=== PATIENT | female | born 1930 | race Caucasian/White ===

== ENCOUNTER 2018-04-11 18:34 | Inpatient (IN) | payer MEDICARE, BC ==
[~2018-04-11] VITALS: Ht 157.5 cm; Wt 84.1 kg
[~2018-04-11 18:34] MED LIST: HYDR-3965 PO; NOR5T PO; NORepinephrine bitartrate 8 MG in NS 250 ML BAG (32 mcg/ml) IV ONE; amiodarone 50MG/ML inj IV ONE; atropine 1 MG/1 ML vial ONE; epiNEPHrine 0.1mg/ml 10ml syringe ONE; magnesium sulf 1 GM/2 ML ONE; sod chloride 0.9% 10ml flush syringe IV ONE; sodium bicarbonate (8.4%) 1 mEq/ml syringe ONE
[2018-04-11 19:31] LABS: ABG BASE EXCESS -21.1 mmol/L (-2.0-3.0); ABG HCO3 10.2 mmol/L (22.0-26.0); ABG OXYGEN SATURATION 90.4 % (95-98); ABG PH (T) 6.986 (7.350-7.450); ALLEN'S TEST Positive; FCOHb 0.4 % (0.5-1.5); FMetHb 0.1 % (0.3-1.12); FO2Hb 89.9 % (94-100); MINUTE VOLUME 8 L/min; PATIENT TEMPERATURE 36.2; PEEP 5 cm H2O; RESPIRATORY RATE 12 b/min; RESPIRATORY RATE (OBSERVED) 19 b/min; TIDAL VOLUME 400 mL; TOTAL HEMOGLOBIN 12.7 G/dl (12.0-16.0)
[2018-04-11] MEDS ORDERED: propofol 1000mg/100ml bottle 100 ML IV ONE (19:31)
[2018-04-11 19:33] LABS: BASOPHILS % (AUTO) 0.3 % (0-1); EOSINOPHILS # (AUTO) 0.1 X10'3 (0-0.9); EOSINOPHILS % (AUTO) 0.5 % (0-6); HEMATOCRIT 35.2 % (35.0-45.0); HEMOGLOBIN 11.6 g/dl (12.0-16.0); LYMPHOCYTES # (AUTO) 5.5 X10'3 (1.1-4.8); LYMPHOCYTES % (AUTO) 38.6 % (21-51); MEAN CORPUSCULAR HEMOGLOBIN 29.6 PG (27.0-31.0); MEAN CORPUSCULAR VOLUME 89.8 FL (78-98); MEAN PLATELET VOLUME 9.7 FL (7.4-10.4); MONOCYTES # (AUTO) 0.5 X10'3 (0-0.9); MONOCYTES % (AUTO) 3.6 % (2-12); NEUTROPHILS # (AUTO) 8.2 X10'3 (1.8-7.7); PLATELET COUNT 94 X10'3 (140-440); RED BLOOD COUNT 3.92 X10'6 (4.20-5.60); WHITE BLOOD COUNT 14.3 X10'3 (4.5-11.0)
[2018-04-11] MEDS ORDERED: sodium bicarbonate (8.4%) 1 mEq/ml syringe IV STA (19:33)
[2018-04-11] MEDS ORDERED: propofol 1000mg/100ml bottle 100 ML IV PRN ×2 (19:37→19:53)
[2018-04-11 19:55] LABS: ALANINE AMINOTRANSFERASE 675 U/L (12-78); ALBUMIN 1.4 G/DL (3.4-5.0); ALBUMIN/GLOBULIN RATIO 0.6 (1.1-1.5); ALKALINE PHOSPHATASE 103 IU/L (46-116); ANION GAP 18 (8-16); BILIRUBIN,TOTAL 1.1 MG/DL (0.1-1.0); BLOOD UREA NITROGEN 28 MG/DL (7-18); BUN/CREATININE RATIO 14.3 (6.6-38.0); CALCIUM 6.9 MG/DL (8.5-10.1); CHLORIDE 107 MMOL/L (99-107); CREATININE 1.96 MG/DL (0.40-0.90); GLUCOSE 317 MG/DL (70-104); SODIUM 141 MMOL/L (135-145); TOTAL CARBON DIOXIDE 15.7 MMOL/L (24-32); TOTAL PROTEIN 3.8 G/DL (6.4-8.2); eGFR 24 ML/MIN
[2018-04-11] MEDS: K, MAG and/or Phos replacement - Verify level? MC SCH (19:55)
[2018-04-11] MEDS ORDERED: potassium Cl 20 mEq SR tablet PO PRN ×2 (19:55)
[2018-04-11] MEDS ORDERED: ondansetron/PF 4mg/2ml inj IV PRN ×2 (19:55→20:10)
[2018-04-11] MEDS ORDERED: potassium Cl 40MEQ/250ML bag 250 ML IV SCH (19:55)
[2018-04-11] MEDS ORDERED: acetaminophen 325mg tablet PO PRN ×3 (19:55→20:10)
[2018-04-11] MEDS ORDERED: morphine 4 MG/ML inj SYRINge IV PRN (19:55)
[2018-04-11] MEDS ORDERED: sodium bicarbonate inj. 133.8 MEQ in dextrose 5%-water 1,001.3333 ML IV SCH (19:55)
[2018-04-11] MEDS ORDERED: magnesium hydroxide 30ml (MOM) UD suspension PO PRN (19:55)
[2018-04-11] MEDS ORDERED: pantoprazole 40 MG vial IV ONE (19:55)
[2018-04-11] MEDS ORDERED: sodium bicarbonate (8.4%) 1 mEq/ml syringe IV ONE (19:55)
[2018-04-11 19:57] LABS: MAGNESIUM 2.1 MG/DL (1.5-2.4); TRIGLYCERIDES 115 MG/DL (20-135)
[2018-04-11 19:59] LABS: ASPARTATE AMINO TRANSFERASE 1508 U/L (10-37); POTASSIUM 3.1 MMOL/L (3.5-5.1)
[2018-04-11] MEDS ORDERED: AMLO2.5T2 PO (19:59)
[2018-04-11] MEDS ORDERED: HYDR-3965 PO (19:59)
[2018-04-11] MEDS ORDERED: SITA1TAB6 PO (19:59)
[2018-04-11] MEDS ORDERED: LIDOcaine 1.5% w/epinephrine 1:200,000 5ml ampul IJ ONE (20:00)
[2018-04-11 20:01] LABS: INR 1.4 INR; PARTIAL THROMBOPLASTIN TIME 44 SECONDS (22-32); PROTHROMBIN TIME 14.1 SECONDS (9.0-12.0)
[2018-04-11] MEDS ORDERED: dextrose 5%-1/2 normal saline 1,000 ML IV SCH (20:06)
[2018-04-11] MEDS ORDERED: acetaminophen 650mg rectal suppository RC PRN (20:10)
[2018-04-11] MEDS ORDERED: midazolam 100mg in NS 100ml 100 ML IV PRN (20:14)
[2018-04-11] MEDS ORDERED: ipratropium/albuterol 3ml nebule NEB PRN (20:15)
[2018-04-11 20:28] LABS: CLARITY,URINE CLOUDY (Clear); COLOR,URINE YELLOW (Yellow); GLUCOSE, URINE 500 mg/dl (Neg); KETONES,URINE 15 mg/dl (Neg); LEUKOCYTE ESTERASE ,URINE NEGATIVE (Neg); NITRITES, URINE NEGATIVE (Neg); OCCULT BLOOD,URINE MODERATE (Neg); PROTEIN,URINE >=300 mg/dl (Neg)
[2018-04-11 20:35] LABS: UA COLLECTION TYPE CLN CATCH MIDSTREAM
[2018-04-11] MEDS ORDERED: NORepinephrine 8mg/ 250ml NS 250 ML IV SCH (20:35)
[2018-04-11 20:37] LABS: BACTERIA,URINE FEW /HPF (Neg); SQUAMOUS EPITHELIAL CELL,UR FEW /LPF (FEW); WBC,URINE NONE SEEN /HPF (0-4)
[2018-04-11] MEDS: sodium bicarbonate (8.4%) inj. 150 MEQ in dextrose 5%-water 1,000 ML IV SCH (21:07)
[2018-04-11 22:00] VITALS: BP 160/88
[2018-04-11] MEDS: FENTANYL-0.9 % NACL/PF 100 ML IV PRN (22:04)
[2018-04-11 22:11] LABS: ABG BASE EXCESS -12.4 mmol/L (-2.0-3.0); ABG HCO3 13.3 mmol/L (22.0-26.0); ABG OXYGEN SATURATION 91.6 % (95-98); ABG PCO2 (T) 25.4 mmHg (32.0-45.0); ABG PH (T) 7.317 (7.350-7.450); ABG PO2 (T) 52.6 mmHg (83-108); ALLEN'S TEST Positive; FCOHb 0.4 % (0.5-1.5); FMetHb 0.2 % (0.3-1.12); FO2Hb 91.1 % (94-100); PATIENT TEMPERATURE 32.8; PEEP 5 cm H2O; RESPIRATORY RATE 12 b/min; RESPIRATORY RATE (OBSERVED) 12 b/min; TIDAL VOLUME 400 mL; TOTAL HEMOGLOBIN 13.9 G/dl (12.0-16.0)
[2018-04-11 22:20] LABS: OXYGEN SATURATION (MIXED VEN) 71.4 % (60-80); PO2 MIXED VENOUS (TEMP COR) 34.3 mmHg (35-46)
[2018-04-11] MEDS ORDERED: dextrose ORAL solution 15 GM/59 ML bottle PO PRN ×2 (22:25)
[2018-04-11] MEDS ORDERED: MESSAGE TO PHARMACY PO ONE (22:25)
[2018-04-11] MEDS ORDERED: dextrose 50%-water 50ml dispensing syringe IV PRN (22:25)
[2018-04-11] MEDS ORDERED: glucagon, human recombinant 1mg kit SUBCUT PRN (22:25)
[2018-04-11 22:46] LABS: HEMOGLOBIN A1C 11.7 % (4.5-6.2)
[2018-04-11 23:00] VITALS: BP 110/71
[2018-04-12] VITALS (24 sets, daily range): BP systolic 78–135; BP diastolic 53–80
[2018-04-12] MEDS ORDERED: heparin 10,000 units/1 ML INJ IV ONE (01:30)
[2018-04-12 02:58] LABS: BASOPHILS % (AUTO) 0 % (0-1); EOSINOPHILS % (AUTO) 0 % (0-6); HEMOGLOBIN 11.9 g/dl (12.0-16.0); LYMPHOCYTES # (AUTO) 0.6 X10'3 (1.1-4.8); LYMPHOCYTES % (AUTO) 3.2 % (21-51); MEAN CORPUSCULAR HEMOGLOBIN 29.9 PG (27.0-31.0); MEAN CORPUSCULAR HGB CONC 34.1 % (33.0-36.5); MEAN CORPUSCULAR VOLUME 87.8 FL (78-98); MEAN PLATELET VOLUME 9.9 FL (7.4-10.4); MONOCYTES % (AUTO) 5.8 % (2-12); NEUTROPHILS # (AUTO) 16.3 X10'3 (1.8-7.7); PLATELET COUNT 116 X10'3 (140-440); RED BLOOD COUNT 3.99 X10'6 (4.20-5.60); RED CELL DISTRIBUTION WIDTH 14.2 % (11.5-14.5); WHITE BLOOD COUNT 17.9 X10'3 (4.5-11.0)
[2018-04-12] MEDS: insulin Lispro (HumaLOG) vial - multi-dose SQ SCH ×11 (03:05→16:16)
[2018-04-12 05:08] LABS: ALANINE AMINOTRANSFERASE 964 U/L (12-78); ALBUMIN 1.9 G/DL (3.4-5.0); ALBUMIN/GLOBULIN RATIO 0.7 (1.1-1.5); ALKALINE PHOSPHATASE 135 IU/L (46-116); ANION GAP 18 (8-16); BILIRUBIN,TOTAL 2.3 MG/DL (0.1-1.0); BLOOD UREA NITROGEN 31 MG/DL (7-18); BUN/CREATININE RATIO 19.5 (6.6-38.0); CALCIUM 7.5 MG/DL (8.5-10.1); CHLORIDE 103 MMOL/L (99-107); CREATININE 1.59 MG/DL (0.40-0.90); PHOSPHORUS 5.1 MG/DL (2.3-4.5); SODIUM 140 MMOL/L (135-145); TOTAL CARBON DIOXIDE 18.8 MMOL/L (24-32); TOTAL PROTEIN 4.5 G/DL (6.4-8.2); eGFR 31 ML/MIN
[2018-04-12 05:18] LABS: GLUCOSE 454 MG/DL (70-104); POTASSIUM 3.5 MMOL/L (3.5-5.1)
[2018-04-12] MEDS: insulin regular, human 100 UNIT in normal saline 100ml IV soln 99 ML IV SCH ×12 (05:25→14:00)
[2018-04-12] MEDS ORDERED: dextrose 50%-water 50ml dispensing syringe IV PRN (05:25)
[2018-04-12] MEDS ORDERED: insulin R INFUSION 1 ML IV ONE (05:25)
[2018-04-12 05:31] LABS: ABG BASE EXCESS -6.8 mmol/L (-2.0-3.0); ABG HCO3 17.6 mmol/L (22.0-26.0); ABG OXYGEN SATURATION 96.3 % (95-98); ABG PCO2 (T) 24.5 mmHg (32.0-45.0); ABG PH (T) 7.447 (7.350-7.450); ABG PO2 (T) 61.8 mmHg (83-108); ALLEN'S TEST Positive; FCOHb 0.3 % (0.5-1.5); FMetHb 0.3 % (0.3-1.12); FO2Hb 95.7 % (94-100); MINUTE VOLUME 5 L/min; PEEP 5 cm H2O; RESPIRATORY RATE 12 b/min; RESPIRATORY RATE (OBSERVED) 12 b/min; TIDAL VOLUME 400 mL; TOTAL HEMOGLOBIN 12.4 G/dl (12.0-16.0)
[2018-04-12 05:47] LABS: ASPARTATE AMINO TRANSFERASE 2609 U/L (10-37)
[2018-04-12] MEDS: sodium chloride 0.45% 1,000 ML IV SCH ×2 (07:49→21:03)
[2018-04-12] MEDS: sodium bicarbonate (8.4%) inj. 150 MEQ in dextrose 5%-water 1,000 ML IV SCH (07:57)
[2018-04-12] MEDS: K, MAG and/or Phos replacement - Verify level? MC SCH (08:00)
[2018-04-12 08:10] LABS: TROPONIN I 25.69 NG/ML (0.0-0.05)
[2018-04-12 08:26] LABS: PO2 MIXED VENOUS (TEMP COR) 21.4 mmHg (35-46)
[2018-04-12] MEDS ORDERED: famotidine 10mg/ml inj IV SCH (11:26)
[2018-04-12] MEDS ORDERED: propofol 1000mg/100ml bottle 100 ML IV PRN (11:35)
[2018-04-12 11:40] LABS: BASOPHILS % (AUTO) 0.1 % (0-1); EOSINOPHILS % (AUTO) 0 % (0-6); HEMATOCRIT 36.1 % (35.0-45.0); HEMOGLOBIN 12.3 g/dl (12.0-16.0); LYMPHOCYTES # (AUTO) 0.9 X10'3 (1.1-4.8); LYMPHOCYTES % (AUTO) 5.6 % (21-51); MEAN CORPUSCULAR HEMOGLOBIN 29.9 PG (27.0-31.0); MEAN CORPUSCULAR VOLUME 87.9 FL (78-98); MEAN PLATELET VOLUME 9.7 FL (7.4-10.4); MONOCYTES # (AUTO) 0.3 X10'3 (0-0.9); NEUTROPHILS # (AUTO) 15.5 X10'3 (1.8-7.7); NEUTROPHILS % (AUTO) 92.3 % (42-75); PLATELET COUNT 153 X10'3 (140-440); RED CELL DISTRIBUTION WIDTH 14.1 % (11.5-14.5); WHITE BLOOD COUNT 16.8 X10'3 (4.5-11.0)
[2018-04-12] MEDS: pantoprazole 40 MG vial IV SCH (11:40)
[2018-04-12 11:58] LABS: ALBUMIN 1.8 G/DL (3.4-5.0); ANION GAP 12 (8-16); BLOOD UREA NITROGEN 34 MG/DL (7-18); BUN/CREATININE RATIO 18.5 (6.6-38.0); CALCIUM 6.6 MG/DL (8.5-10.1); CHLORIDE 103 MMOL/L (99-107); CREATININE 1.84 MG/DL (0.40-0.90); SODIUM 138 MMOL/L (135-145); TOTAL CARBON DIOXIDE 23.4 MMOL/L (24-32); eGFR 26 ML/MIN
[2018-04-12 12:02] LABS: GLUCOSE 453 MG/DL (70-104); POTASSIUM 2.2 MMOL/L (3.5-5.1)
[2018-04-12] MEDS: K and/or MAG REPLACEMENT MC SCH (12:40)
[2018-04-12] MEDS ORDERED: potassium Cl 20 mEq SR tablet PO PRN ×2 (12:40)
[2018-04-12] MEDS: FENTANYL-0.9 % NACL/PF 100 ML IV PRN (12:44)
[2018-04-12] MEDS: potassium Cl 40MEQ/250ML bag 250 ML IV PRN ×2 (13:24→15:32)
[2018-04-12 17:41] LABS: BASOPHILS % (AUTO) 0.1 % (0-1); EOSINOPHILS % (AUTO) 0 % (0-6); HEMATOCRIT 32.7 % (35.0-45.0); HEMOGLOBIN 11.2 g/dl (12.0-16.0); LYMPHOCYTES # (AUTO) 0.8 X10'3 (1.1-4.8); LYMPHOCYTES % (AUTO) 5.8 % (21-51); MEAN CORPUSCULAR HEMOGLOBIN 29.8 PG (27.0-31.0); MEAN CORPUSCULAR HGB CONC 34.2 % (33.0-36.5); MEAN CORPUSCULAR VOLUME 87.2 FL (78-98); MEAN PLATELET VOLUME 9.6 FL (7.4-10.4); MONOCYTES # (AUTO) 0.3 X10'3 (0-0.9); MONOCYTES % (AUTO) 2.3 % (2-12); NEUTROPHILS # (AUTO) 12.7 X10'3 (1.8-7.7); NEUTROPHILS % (AUTO) 91.8 % (42-75); PLATELET COUNT 113 X10'3 (140-440); RED BLOOD COUNT 3.75 X10'6 (4.20-5.60); RED CELL DISTRIBUTION WIDTH 14.3 % (11.5-14.5); WHITE BLOOD COUNT 13.9 X10'3 (4.5-11.0)
[2018-04-12 18:00] LABS: ALBUMIN 1.8 G/DL (3.4-5.0); ANION GAP 7 (8-16); BLOOD UREA NITROGEN 34 MG/DL (7-18); CALCIUM 6.6 MG/DL (8.5-10.1); CHLORIDE 107 MMOL/L (99-107); CREATININE 1.89 MG/DL (0.40-0.90); GLUCOSE 256 MG/DL (70-104); POTASSIUM 4.1 MMOL/L (3.5-5.1); SODIUM 137 MMOL/L (135-145); TOTAL CARBON DIOXIDE 23.2 MMOL/L (24-32); eGFR 25 ML/MIN
[2018-04-12 18:02] LABS: TROPONIN I 26.23 NG/ML (0.0-0.05)
[2018-04-12] MEDS ORDERED: insulin glargine (Lantus) pen - multi-dose SQ SCH (21:00)
[2018-04-12] MEDS: mineral oil/petrolatum ophthal oint EACHEYE SCH (21:03)
[2018-04-12 23:06] LABS: ABG BASE EXCESS -4.3 mmol/L (-2.0-3.0); ABG HCO3 19.7 mmol/L (22.0-26.0); ABG OXYGEN SATURATION 94.7 % (95-98); ABG PCO2 (T) 28.2 mmHg (32.0-45.0); ABG PH (T) 7.445 (7.350-7.450); ABG PO2 (T) 55.5 mmHg (83-108); ALLEN'S TEST Positive; FCOHb 0.2 % (0.5-1.5); FMetHb 0.1 % (0.3-1.12); FO2Hb 94.4 % (94-100); MINUTE VOLUME 8 L/min; PATIENT TEMPERATURE 33.3; PEEP 5 cm H2O; RESPIRATORY RATE 12 b/min; RESPIRATORY RATE (OBSERVED) 18 b/min; TIDAL VOLUME 400 mL; TOTAL HEMOGLOBIN 13.8 G/dl (12.0-16.0)
[2018-04-12 23:21] LABS: OXYGEN SATURATION (MIXED VEN) 56.9 % (60-80); PO2 MIXED VENOUS (TEMP COR) 22.3 mmHg (35-46)
[2018-04-12 23:48] LABS: ANION GAP 8 (8-16); BLOOD UREA NITROGEN 35 MG/DL (7-18); BUN/CREATININE RATIO 18.5 (6.6-38.0); CALCIUM 7.1 MG/DL (8.5-10.1); CHLORIDE 107 MMOL/L (99-107); CREATININE 1.89 MG/DL (0.40-0.90); GLUCOSE 87 MG/DL (70-104); MAGNESIUM 1.5 MG/DL (1.5-2.4); POTASSIUM 3.3 MMOL/L (3.5-5.1); SODIUM 138 MMOL/L (135-145); TOTAL CARBON DIOXIDE 22.6 MMOL/L (24-32); eGFR 25 ML/MIN
[2018-04-13] VITALS (24 sets, daily range): BP systolic 97–167; BP diastolic 54–74
[2018-04-13 00:01] LABS: CREATINE KINASE 3403 U/L (26-192)
[2018-04-13] MEDS: dextrose 50%-water 50ml dispensing syringe IV PRN ×3 (00:12→04:20)
[2018-04-13] MEDS ORDERED: mineral oil/petrolatum ophthal oint EACHEYE SCH (02:00)
[2018-04-13] MEDS: mineral oil/petrolatum ophthal oint EACHEYE SCH ×2 (02:08→08:07)
[2018-04-13 04:23] LABS: BASOPHILS % (AUTO) 0.2 % (0-1); EOSINOPHILS % (AUTO) 0 % (0-6); HEMOGLOBIN 12.9 g/dl (12.0-16.0); LYMPHOCYTES # (AUTO) 1.2 X10'3 (1.1-4.8); LYMPHOCYTES % (AUTO) 5.9 % (21-51); MEAN CORPUSCULAR HEMOGLOBIN 29.9 PG (27.0-31.0); MEAN CORPUSCULAR HGB CONC 33.9 % (33.0-36.5); MEAN CORPUSCULAR VOLUME 88.2 FL (78-98); MEAN PLATELET VOLUME 9.9 FL (7.4-10.4); MONOCYTES # (AUTO) 1.1 X10'3 (0-0.9); MONOCYTES % (AUTO) 5.7 % (2-12); NEUTROPHILS # (AUTO) 17.5 X10'3 (1.8-7.7); NEUTROPHILS % (AUTO) 88.2 % (42-75); PLATELET COUNT 144 X10'3 (140-440); RED CELL DISTRIBUTION WIDTH 14.6 % (11.5-14.5); WHITE BLOOD COUNT 19.8 X10'3 (4.5-11.0)
[2018-04-13 04:53] LABS: ALANINE AMINOTRANSFERASE 732 U/L (12-78); ALBUMIN 1.9 G/DL (3.4-5.0); ALBUMIN/GLOBULIN RATIO 0.7 (1.1-1.5); ALKALINE PHOSPHATASE 116 IU/L (46-116); ANION GAP 7 (8-16); BLOOD UREA NITROGEN 35 MG/DL (7-18); BUN/CREATININE RATIO 17.6 (6.6-38.0); CHLORIDE 107 MMOL/L (99-107); CREATININE 1.99 MG/DL (0.40-0.90); GLUCOSE 71 MG/DL (70-104); MAGNESIUM 1.4 MG/DL (1.5-2.4); PHOSPHORUS 2.3 MG/DL (2.3-4.5); POTASSIUM 3.4 MMOL/L (3.5-5.1); SODIUM 137 MMOL/L (135-145); TOTAL PROTEIN 4.7 G/DL (6.4-8.2); eGFR 24 ML/MIN
[2018-04-13 04:56] LABS: ASPARTATE AMINO TRANSFERASE 1181 U/L (10-37); CREATINE KINASE 2875 U/L (26-192)
[2018-04-13 04:57] LABS: TROPONIN I 24.81 NG/ML (0.0-0.05)
[2018-04-13 05:06] LABS: ABG BASE EXCESS -2.9 mmol/L (-2.0-3.0); ABG OXYGEN SATURATION 96.5 % (95-98); ABG PCO2 (T) 26.9 mmHg (32.0-45.0); ABG PH (T) 7.479 (7.350-7.450); ABG PO2 (T) 69.1 mmHg (83-108); ALLEN'S TEST Positive; FCOHb 0.1 % (0.5-1.5); FMetHb 0.2 % (0.3-1.12); FO2Hb 96.2 % (94-100); MINUTE VOLUME 8 L/min; PATIENT TEMPERATURE 34.7; PEEP 5 cm H2O; RESPIRATORY RATE 12 b/min; RESPIRATORY RATE (OBSERVED) 18 b/min; TIDAL VOLUME 400 mL; TOTAL HEMOGLOBIN 13.4 G/dl (12.0-16.0)
[2018-04-13 05:15] LABS: OXYGEN SATURATION (MIXED VEN) 63.8 % (60-80); PO2 MIXED VENOUS (TEMP COR) 26.1 mmHg (35-46)
[2018-04-13] MEDS: K, MAG and/or Phos replacement - Verify level? MC SCH (08:00)
[2018-04-13] MEDS: K and/or MAG REPLACEMENT MC SCH (08:00)
[2018-04-13] MEDS: pantoprazole 40 MG vial IV SCH (08:07)
[2018-04-13 10:45] LABS: ALBUMIN 1.9 G/DL (3.4-5.0); ANION GAP 10 (8-16); BLOOD UREA NITROGEN 34 MG/DL (7-18); BUN/CREATININE RATIO 15.9 (6.6-38.0); CHLORIDE 106 MMOL/L (99-107); CREATININE 2.14 MG/DL (0.40-0.90); GLUCOSE 87 MG/DL (70-104); MAGNESIUM 1.4 MG/DL (1.5-2.4); POTASSIUM 3.7 MMOL/L (3.5-5.1); SODIUM 139 MMOL/L (135-145); TOTAL CARBON DIOXIDE 22.9 MMOL/L (24-32); eGFR 22 ML/MIN
[2018-04-13] MEDS: sodium chloride 0.45% 1,000 ML IV SCH (10:49)
[2018-04-13] MEDS ORDERED: morphine 10mg/ml inj. IV PRN (11:40)
[2018-04-13] MEDS: LORazepam 2 mg/ml vial IV PRN (14:29)
[2018-04-13] MEDS: morphine 4 MG/ML inj SYRINge IV PRN ×5 (15:15→18:15)
[2018-04-14] VITALS (9 sets, daily range): BP systolic 120–147; BP diastolic 58–74
[2018-04-14] MEDS: morphine 4 MG/ML inj SYRINge IV PRN ×3 (03:52→05:55)
[2018-04-14] MEDS: LORazepam 2 mg/ml vial IV PRN (06:01)
== END 2018-04-14 08:30 | disposition expired | DRG 208 ==
LOC: EDBD 18:37 → ER 18:37 → MERGE 20:06 → ED HOLD 20:06 → EDBEDREQTM 20:20 → ICU 2S 21:40
PROVIDERS: ADMIT Internal Medicine Critical Care Medicine; ATTEND Internal Medicine Critical Care Medicine
PROC: 5A12012 Performance of Cardiac Output, Single, Manual (ICD-10-PCS; principal; 2018-04-11)
PROC: 5A1945Z Respiratory Ventilation, 24-96 Consecutive Hours (ICD-10-PCS; 2018-04-11)
PROC: 0BH17EZ Insertion of Endotracheal Airway into Trachea, Via Natural or Artificial Opening (ICD-10-PCS; 2018-04-11)
PROC: 06HM33Z Insertion of Infusion Device into Right Femoral Vein, Percutaneous Approach (ICD-10-PCS; 2018-04-11)
PROC: B54BZZA Ultrasonography of Right Lower Extremity Veins, Guidance (ICD-10-PCS; 2018-04-11)
PROC: 0W9930Z Drainage of Right Pleural Cavity with Drainage Device, Percutaneous Approach (ICD-10-PCS; 2018-04-11)
DX: J96.00 Acute respiratory failure, unspecified whether with hypoxia or hypercapnia (principal); K72.00 Acute and subacute hepatic failure without coma; N17.9 Acute kidney failure, unspecified; I47.2 Ventricular tachycardia; G93.1 Anoxic brain damage, not elsewhere classified; J95.811 Postprocedural pneumothorax; I49.01 Ventricular fibrillation; I46.9 Cardiac arrest, cause unspecified; I10 Essential (primary) hypertension; E11.65 Type 2 diabetes mellitus with hyperglycemia; I44.7 Left bundle-branch block, unspecified; I48.91 Unspecified atrial fibrillation; Z66 Do not resuscitate; Z51.5 Encounter for palliative care; Z91.19 Patient's noncompliance with other medical treatment and regimen; Z63.8 Other specified problems related to primary support group; Y84.8 Other medical procedures as the cause of abnormal reaction of the patient, or of later complication, without mention of misadventure at the time of the procedure; Y92.238 Other place in hospital as the place of occurrence of the external cause
CPT/HCPCS: 36415; 36556; 36600; 71045; 80048; 80053; 81001; 82550; 82803; 82810; 82948; 83036; 83605; 83735; 83880; 84100; 84478; 84484; 85018; 85025; 85610; 85730; 87070; 92950; 93005; 93306; 94002; 94003; 94760; 95951; 99291; A6213; A6223; A6449; C1758; C9113; J0171; J0282; J0461; J1644; J1815; J2060; J2250; J2270; J2704; J3475; J3480; J3490; J7030; J7070